=== PATIENT | male | born 1955 | race Caucasian/White ===

== ENCOUNTER 2023-06-27 09:11 | Observation (INO) | payer MEDICARE, SELFPAY ==
[2023-06-27 09:13] VITALS: BP 175/99; PULSE 75; RESP 14; TEMP 36.4; O2SAT 98; BMI 50.1
--- NOTE | 2023-06-27 09:19 | EDS_ITS ---
HPI HPI - GI History of Present Illness Chief Complaint: Abd Pain Informant: patient Abdominal Pain/Flank Pain Onset: Days (5) Context: Sudden Onset Timing: Continuous Quality: Cramping Location: RLQ and LLQ Worsened by: Nothing Relieved by: Nothing Nausea/Vomiting/Emesis GI Symptom: Positive for Nausea; Negative for Vomiting Diarrhea/Melena/Hematochezia GI Symptom: Negative for Diarrhea, Melena or Hematochezia Associated Symptoms Associated Symptoms: Negative for Dysuria, Frequency or Hematuria Narrative Narrative: Patient presents with abdominal pain that has been getting worse over the last 5 days. Patient states it began rather suddenly. Patient states it started in his right lower quadrant but now is in the periumbilical area. Patient states he has been some muscle pain over his lower abdomen. Patient states nothing makes it worse and nothing makes it better. Patient states the pain has been constant. Patient describes it as cramping. Patient admits to some nausea but denies any vomiting. Patient denies any diarrhea, melena, or hematochezia. Patient denies any dysuria or hematuria. Patient states he took some milk of magnesia with no improvement. PFSH PFSH Medical History no medical history no medical history Home Medications NK 06/27/23 [History Last Taken Unknown] Allergy/AdvReac Type Severity Reaction Status Date / Time No Known Allergies Allergy Verified 06/27/23 09:12 Surgical History (Updated 06/27/23 @ 09:[address] Shreyas Armando DO) Hx of knee surgery Social History Smoking Status: Former smoker ROS ROS ED Constitutional Constitutional ED: Reports chills, fever(s) and subjective Eyes Eyes: Denies blurry vision or change in vision ENT ENT ED: Denies rhinorrhea or sore throat Cardiovascular Cardiovascular: Denies chest pain or palpitations Respiratory/Chest Respiratory/Chest: Denies cough or dyspnea Gastrointestinal Gastrointestinal: Reports abdominal pain and nausea; Denies vomiting Genitourinary Genitourinary ED: Denies dysuria or hematuria Musculoskeletal Musculoskeletal: Reports back pain; Denies neck pain Integumentary Denies abscess or rash Neurologic Neurologic: Denies headache(s) or weakness Allergic/Immunologic Allergic/Immunologic ED: Denies mouth swelling or urticaria EXAM Physical Exam Const Vital Signs: 06/27/23 09:13 06/27/23 10:13 06/27/23 13:20 Temperature 97.6 F L 98.8 F Temperature Source Temporal Pulse Rate 75 67 58 L Respiratory Rate 14 18 18 Blood Pressure 175/99 H 154/85 H Blood Pressure Mean 124 108 Pulse Ox 98 98 97 Oxygen Delivery Method Room Air Room Air Positive well nourished, well developed and obese General Appearance ED: well developed and NAD Nutritional Appearance: obese HEENT Reports moist mucous membranes normocephalic Neck supple and no JVD Resp normal respiratory effort and clear to auscultation bilaterally Cardio regular rate and regular rhythm GI non-distended Palpation: soft and tender epigastric, LLQ, RLQ, LUQ, RUQ, periumbilical and suprapubic; Negative for guarding or rebound tenderness present Neuro CN's II-XII intact bilaterally, moves all extremities and no sensory deficits noted Sensorium / Orientation: alert Motor Exam: strength 5/5 throughout MDM MDM MDM Narrative Medical decision making narrative: Differential diagnosis includes cholecystitis, cholelithiasis, pyelonephritis, pancreatitis, colitis, appendicitis, obstruction, perforation, ureteral calculus, urinary tract infection, and gastroenteritis. CBC will be obtained to assess for leukocytosis and anemia. Comprehensive metabolic profile will be obtained to assess for hepatic function, renal function, and electrolyte abnormality. Lipase will be obtained to assess for pancreatitis. Urinalysis will be obtained to assess for urinary tract infection and hematuria. CT scan of the abdomen pelvis will be obtained to assess for appendicitis, cholecystitis, bowel obstruction, perforation, and ureteral calculus. Lab Data Attestation: I reviewed the patient's lab results. Lab results narrative: CBC was reviewed. There is a leukocytosis of 13.2. Comprehensive metabolic profile was reviewed and was essentially within normal limits. Lipase was reviewed and was normal at 49. Urinalysis was reviewed. There is no evidence of urinary tract infection or hematuria. Labs: Laboratory Results - last 24 hr 06/27/23 06/27/23 09:45 10:55 WBC 13.2 H RBC 5.44 Hgb 16.2 Hct 48.8 MCV 89.7 MCH 29.8 MCHC 33.2 RDW Std Deviation 44.9 H RDW Coeff of Morteza 13.7 Plt Count 256 MPV 9.7 Immature Gran % (Auto) 2.200 H Neut % (Auto) 78.5 H Lymph % (Auto) 9.0 L [place] % (Auto) 9.2 Eos % (Auto) 0.6 Baso % (Auto) 0.5 Absolute Neuts (auto) 10.3 H Absolute Lymphs (auto) 1.18 Nucleated RBC % 0 Sodium 140 Potassium 4.5 Chloride 109 H Carbon Dioxide 27.0 Anion Gap 4 L BUN 22 H Creatinine 1.09 Estim Creat Clear Calc 59.80 Est GFR (MDRD) Af Amer 86 Est GFR (MDRD) Non-Af 71 BUN/Creatinine Ratio 20.2 H Glucose 112 H Calcium 8.8 Total Bilirubin 1.10 H AST 30 ALT 72 H Alkaline Phosphatase 67 Total Protein 7.0 Albumin 3.4 Globulin 3.6 Albumin/Globulin Ratio 0.9 Lipase 49 Urine Color Yellow Urine Clarity Sl. Cloudy Urine pH 6.0 Ur Specific [place] 1.020 Urine Protein 30 H Urine Glucose (UA) Normal Urine Ketones Negative Urine Occult Blood 10 H Urine Nitrite Negative Urine Bilirubin Negative Urine Urobilinogen 1 H Ur Leukocyte Esterase 100 H Urine RBC 0 SEEN Urine WBC 0-5 SEEN Ur Squamous Epith Cells 0 SEEN Urine Bacteria 0 SEEN Urine Mucus 0 SEEN Radiography Diagnostic Testing: Clinical Impression(s) from Imaging Studies Abdomen/Pelvis CT 06/27/23 09:33 IMPRESSION: Questionable recent anterior abdominal hernia repair with postoperative changes and possible small postoperative seroma. Clinical correlation recommended. Left renal cysts. Findings suggestive of a sludge or small gallstones within the gallbladder lumen. Electronically Signed: Kvng Bella MD at 12:38 EDT , CT scan of the abdomen pelvis was obtained. There is a small fluid collection in the periumbilical area. There is no free air or free fluid. This was interpreted by the radiologist and was also independently reviewed by myself. Treatment and Re-Evaluation :: Patient was given IV fluids, morphine, and Zofran. Patient is feeling better on reevaluation. Patient was given a dose of Zosyn. Case was discussed with Dr. Yates. She will admit the patient for IV antibiotics. Patient understands and is agreeable with the plan. All questions were answered. Discharge Plan Triage Chief Complaint: Abd Pain ED Provider: Shreyas Armando Dx/Rx/DC Orders Clinical Impression: Leukocytosis, Abdominal abscess Prescriptions: No Action NK Primary Care Provider: Yuriy Morgan Referrals: Yuriy Morgan MD [Primary Care Provider] - Disposition Disposition: Acute Care Hospital [facility]
--- NOTE | 2023-06-27 09:33 | CT_ITS ---
STUDY: CT ABDOMEN AND PELVIS WITH CONTRAST REASON FOR EXAM: Male, 67 years old. Abdominal pain -- IV PO Contrast RADIATION DOSAGE (If Supplied By Facility): CTDIvol = ( 18.39 ) mGy, DLP = ( 1501.17 ) mGycm TECHNIQUE: Transaxial images were obtained from the dome of the diaphragm to the symphysis pubis with oral contrast. Oral and amp; IV Gastrografin and amp; 100mL Isovue-300 was administered. Sagittal and coronal images were reconstructed. Individualized dose optimization techniques were used for this CT. COMPARISON: None. FINDINGS: The visualized lung bases are unremarkable. The visualized portions of the heart are within normal limits. Normal liver. Suspect sludge or small gallstones in the dependent portion the gallbladder lumen. Normal spleen. Normal pancreas. Normal bilateral adrenal glands. Normal right kidney. There is a 4 cm x 3.8 cm cyst in the upper pole of the left kidney. Left renal cysts also seen in the midportion the kidney and in the lower pole. The largest cyst measures 4 cm x 4.8 cm. Normal visualized stomach. Normal small intestine. There are multiple colonic diverticula consistent with diverticulosis. The appendix is visualized and appears normal. There is scattered atherosclerotic calcification of the abdominal aorta, without a demonstrated aneurysm. Normal inferior vena cava. Normal retroperitoneum. Normal urinary bladder. Prostatic calcification. Findings suggestive of recent anterior abdominal wall hernia repair with a 4.5 cm x 2.5 cm fluid collection suggestive of possible postoperative seroma. There is also evidence of a small amount of air collection within the fluid. There are degenerative changes of the visualized lumbar spine. CT/Abdomen/Pelvis WITH Contrast IMPRESSION: Questionable recent anterior abdominal hernia repair with postoperative changes and possible small postoperative seroma. Clinical correlation recommended. Left renal cysts. Findings suggestive of a sludge or small gallstones within the gallbladder lumen. Electronically Signed: Kvng Bella MD at 12:38 EDT ,
[2023-06-27] MEDS: 0.9% Normal Saline (1000mL) 1,000 ML 1000 ML IV (09:41)
[2023-06-27] MEDS: Ondansetron 4 MG/2 ML Vial IV (09:42)
[2023-06-27 09:52] LABS: Absolute Lymphocyte Count 1.18 X10^3/uL (0.83-4.51); Absolute Neutrophil Count 10.3 X10^3/uL (2.0-7.7); Basophil# 0.06 X10^3/uL; Basophil% 0.5 % (0-1); Eosinophil# 0.08 X10^3/uL; Eosinophils% 0.6 % (0-5); Hematocrit 48.8 % (40-54); Hemoglobin 16.2 g/dL (13.0-16.5); Lymphocyte # 1.18 X10^3/ul (0.83-4.51); Mean Corp Hgb Conc 33.2 g/dL (32-36); Mean Corpuscular Hgb 29.8 pg (27.0-32.0); Mean Corpuscular Volume 89.7 fL (80-94); Mean Platelet Vol. 9.7 fl (6.2-12.0); Monocyte# 1.21 X10^3/uL; Monocyte% 9.2 % (0-10); NRBC Flagged by Analyzer 0 % (0-5); Neutrophil # 10.33 X10^3/uL (2.7-7.7); Neutrophil % 78.5 % (47-70); Platelet Count 256 K/mm3 (150-450); RBC Distribution Width CV 13.7 % (11.6-14.6); RBC Distribution Width SD 44.9 fl (35.1-43.9); Red Blood Count 5.44 M/mm3 (4.6-6.2); White Blood Count 13.2 K/mm3 (4.4-11.0)
[2023-06-27 10:10] LABS: ALB/GLOB Ratio 0.9 RATIO (0.9-2.4); AST(SGOT) 30 U/L (15-37); Alanine Aminotransfer ALT/SGPT 72 U/L (16-61); Albumin, Serum 3.4 g/dL (3.2-5.0); Alkaline Phosphatase 67 U/L (45-117); Anion Gap 4 (5-15); BUN 22 mg/dL (7-18); BUN/Creat Ratio 20.2 RATIO (10-20); Calcium,Total 8.8 mg/dL (8.5-10.1); Chloride 109 mmol/L (98-107); Creatinine, Serum 1.09 mg/dL (0.70-1.30); EST Glomerular Filtration Rate 71 mL/min (>60); Est Glom Filt Rate - Afr Amer 86 mL/min (>60); Globulin 3.6 g/dL (2.2-4.2); Glucose 112 mg/dL (74-106); Lipase 49 U/L (13-75); Potassium 4.5 mmol/L (3.5-5.1); Sodium Level 140 mmol/L (136-145)
[2023-06-27 10:13] VITALS: PULSE 67; RESP 18; O2SAT 98
[2023-06-27 11:01] LABS: Bacteria 0 SEEN /hpf (None Seen); Mucous, Urine 0 SEEN /hpf (<or=2+); Red Blood Cells-Urine 0 SEEN /hpf (0-5)
[2023-06-27 11:04] LABS: Color, Urine Yellow (Yellow); Glucose, Dipstick Normal (Normal); Ketone-Dipstick Negative (Negative); Leukocyte Esterase-Dipstick 100 /ul (Negative); Nitrite-Dipstick Negative (Negative); Occult Blood-Urine 10 /ul (Negative); Protein-Dipstick 30 mg/dl (Negative); Urine Bilirubin Dipstick Negative (Negative); Urine Clarity Sl. Cloudy (Clear); Urine Urobilinogen 1 mg/dl (Normal)
[2023-06-27 11:09] LABS: White Blood Cells 0-5 SEEN /hpf (0-5)
[2023-06-27 11:10] LABS: Squamous Epithelial Cells - UA 0 SEEN /hpf (0-5)
[2023-06-27] MEDS: Piperacil/Tazobactam 4.5 GM in 0.9% Normal Saline (100mL MB+) 100 ML IV (12:19)
--- NOTE | 2023-06-27 13:01 | HP.PCM_ITS ---
HPI - General General Date of Admission: 06/27/23 Date of Service: 06/27/23 Chief Complaint: abdominal pain HPI Narrative ISMAEL SANCHEZ, is a 67 M with a pMH as outlined who presents via the ED on 06/27/2023 with a complaint of abdominal pain with had been going on for about 5 days. It started rather suddenly and was periumbilical in nature. It had no aggravating or relieving factor. He denied any fever, chills, palpitations or vomiting. He did admit to nausea. Review of systems was otherwise negative. Vitals in the ED were AR of 67, RR of 18, oxygen sats of 98% on room air. BP was 175/99. CBC showed wbc of 13.2, hb of 16.2 and platelets of 256. Chemistry showed sodium of 140, cr of 1.09 and potassium of 4.5. Urinalysis showed no evidence of UTI. CT of the abdomen and pelvis showed questionable recent anterior abdominal hernia repair with postoperative changes and possible small postoperative seroma with findings suggestive of sludge or small gallstones in the gallbladder and left renal cyst. He has been admitted to be managed for abdominal pain PFSH Medical History no medical history Home Medications oxycodone 15 mg tablet 15 mg PO Q4H 01/10/14 [History Last Taken Unknown] Allergy/AdvReac Type Severity Reaction Status Date / Time No Known Allergies Allergy Verified 06/27/23 09:12 Surgical History (Updated 06/27/23 @ 09:[address] Shreyas Armando DO) Hx of knee surgery Social History Smoking Status: Former smoker Vital Signs Vital Signs Vital Signs: 06/27/23 09:13 06/27/23 10:13 Temperature 97.6 F L Temperature Source Temporal Pulse Rate 75 67 Respiratory Rate 14 18 Blood Pressure 175/99 H Blood Pressure Mean 124 Pulse Ox 98 98 Oxygen Delivery Method Room Air Room Air Weight Weight: 320 lb 1.6 oz Body Mass Index (BMI) 50.1 Results Lab / Micro Data 06/27/23 09:45 06/27/23 09:45 Labs: Laboratory Results - last 24 hr 06/27/23 09:45: WBC 13.2 H, RBC 5.44, Hgb 16.2, Hct 48.8, MCV 89.7, MCH 29.8, MCHC 33.2, RDW Std Deviation 44.9 H, RDW Coeff of Morteza 13.7, Plt Count 256, MPV 9.7, Immature Gran % (Auto) 2.200 H, Neut % (Auto) 78.5 H, Lymph % (Auto) 9.0 L, [place] % (Auto) 9.2, Eos % (Auto) 0.6, Baso % (Auto) 0.5, Absolute Neuts (auto) 10.3 H, Absolute Lymphs (auto) 1.18, Nucleated RBC % 0, Sodium 140, Potassium 4.5, Chloride 109 H, Carbon Dioxide 27.0, Anion Gap 4 L, BUN 22 H, Creatinine 1.09, Estim Creat Clear Calc 59.80, Est GFR (MDRD) Af Amer 86, Est GFR (MDRD) Non-Af 71, BUN/Creatinine Ratio 20.2 H, Glucose 112 H, Calcium 8.8, Total Bili sloan 1.10 H, AST 30, ALT 72 H, Alkaline Phosphatase 67, Total Protein 7.0, Albumin 3.4, Globulin 3.6, Albumin/Globulin Ratio 0.9, Lipase 49 06/27/23 10:55: Urine Color Yellow, Urine Clarity Sl. Cloudy, Urine pH 6.0, Ur Specific [place] 1.020, Urine Protein 30 H, Urine Glucose (UA) Normal, Urine Ketones Negative, Urine Occult Blood 10 H, Urine Nitrite Negative, Urine Bilirubin Negative, Urine Urobilinogen 1 H, Ur Leukocyte Esterase 100 H, Urine RBC 0 SEEN, Urine WBC 0-5 SEEN, Ur Squamous Epith Cells 0 SEEN, Urine Bacteria 0 SEEN, Urine Mucus 0 SEEN Radiology Impression Abdomen/Pelvis CT 06/27/23 09:33 IMPRESSION: Questionable recent anterior abdominal hernia repair with postoperative changes and possible small postoperative seroma. Clinical correlation recommended. Left renal cysts. Findings suggestive of a sludge or small gallstones within the gallbladder lumen. Electronically Signed: Kvng Bella MD at 12:38 EDT ,
[2023-06-27 13:20] VITALS: BP 154/85; PULSE 58; RESP 18; TEMP 37.1; O2SAT 97
--- NOTE | 2023-06-27 14:10 | HP.PCM_ITS ---
HPI - General General Date of Admission: 06/27/23 Date of Service: 06/27/23 Chief Complaint: Abdominal pain HPI Narrative ISMAEL SANCHEZ, is a 67 M who presents with a 5 day history of mid abdominal pain. Patient stated on Monday evening he had a sudden onset of pain at the umbilicus. He described the pain as severe cramping and twisting of the bowel. Patient notes he felt bloated and had a lot of pressure on his abdomen. Patient's gave the patient a dose of milk of magnesium which allowed him to have a bowel movement and eased the pain. Patient notes for 2 days after the pain had slowly improved. Patient notes his appetite was decreased for 2 days. Patient denies fever, nausea, vomiting. Patient notes his abdomen continues to be sore, however the pain has improved. Patient notes last night for dinner he had chicken breast, broccoli and potatoes. Patient notes he had a similar episode of abdominal pain last year. He was unsure of what the pain could be, however did not seek treatment at that time. Patient states the pain was more intense the last episode. Patient stated if similar abdominal pain occurred, he would seek t reatment. Patient states he had ulcerative colitis at the age of 17. He notes his sister has a history of diverticulitis. He is unsure of his other siblings history. Patient states he is unsure if the sister with the diverticulitis has a history of ulcerative colitis. Patient did note that his sisters son, patient's nephew, of colon cancer at the age of 30. Patient states he has never had a colonoscopy. He notes normal bowel habits. He does not and has not followed with a pathology laboratory aide. Patient states he performs yearly occult blood tests which have been negative. CT scan of the abdomen/pelvis demonstrated a 4.5 x 2.5 cm fluid collection possible seroma. Left renal cyst. Sludge or small gallstones within the gallbladder. Patient's WBC is 13.2 with a left shift. [facility] Medical History no medical history Home Medications NK 06/27/23 [History Last Taken Unknown] Allergy/AdvReac Type Severity Reaction Status Date / Time No Known Allergies Allergy Verified 06/27/23 09:12 Surgical History (Updated 06/27/23 @ 09:[address] Shreyas Armando, DO) Hx of knee surgery Social History Smoking Status: Former smoker ROS Constitutional Constitutional: Reports systems reviewed and no addt'l complaints, except as documented Eyes Eyes: Reports systems reviewed and no addt'l complaints, except as documented ENT HEENT: Reports systems reviewed and no addt'l complaints, except as documented Cardiovascular Cardiovascular: Reports systems reviewed and no addt'l complaints, except as documented Respiratory/Chest Respiratory/Chest: Reports systems reviewed and no addt'l complaints, except as documented Gastrointestinal Gastrointestinal: Reports systems reviewed and no addt'l complaints, except as documented Genitourinary Genitourinary: Reports systems reviewed and no addt'l complaints, except as documented Musculoskeletal Musculoskeletal: Reports systems reviewed and no addt'l complaints, except as documented Integumentary Integumentary: Reports systems reviewed and no addt'l complaints, except as documented Neurologic Neurologic: Reports systems reviewed and no addt'l complaints, except as documented Psychiatric Psychiatric: Reports systems reviewed and no addt'l complaints, except as doc umented Endocrine Endocrinology: Reports systems reviewed and no addt'l complaints, except as documented Hematologic/Lymphatic Hematologic/Lymphatic: Reports systems reviewed and no addt'l complaints, except as documented Allergic/Immunologic Allergic/Immunologic: Reports systems reviewed and no addt'l complaints, except as documented Vital Signs Vital Signs Vital Signs: 06/27/23 09:13 06/27/23 10:13 06/27/23 13:20 Temperature 97.6 F L 98.8 F Temperature Source Temporal Pulse Rate 75 67 58 L Respiratory Rate 14 18 18 Blood Pressure 175/99 H 154/85 H Blood Pressure Mean 124 108 Pulse Ox 98 98 97 Oxygen Delivery Method Room Air Room Air Weight Weight: 320 lb 1.6 oz Body Mass Index (BMI) 50.1 Physical Exam Const alert, oriented x3 and no apparent distress Nutritional Appearance: morbidly obese HEENT normocephalic and head/scalp atraumatic Eyes PERRL and EOMs intact bilaterally Neck full ROM General: normal visual inspection Lymph Lymphatic: no lymphadenopathy noted Chest inspection of chest normal Resp normal respiratory effort and clear to auscultation bilaterally Cardio regular rate and regular rhythm GI GI Narrative: Abdomen- obtunded, obese, hypoactive bowel sounds. Tenderness in the mid abdomen inferior to the umbilicus and right lower abdomen. no CVA tenderness Back/Spine no CVA tenderness Extremity normal to inspection Skin no rashes or lesions noted Neuro no focal motor deficits and no sensory deficits noted Psych mental status grossly normal Appearance: grossly normal Results Lab / Micro Data 06/27/23 09:45 06/27/23 09:45 Labs: Laboratory Results - last 24 hr 06/27/23 09:45: WBC 13.2 H, RBC 5.44, Hgb 16.2, Hct 48.8, MCV 89.7, MCH 29.8, MCHC 33.2, RDW Std Deviation 44.9 H, RDW Coeff of Morteza 13.7, Plt Count 256, MPV 9.7, Immature Gran % (Auto) 2.200 H, Neut % (Auto) 78.5 H, Lymph % (Auto) 9.0 L, [place] % (Auto) 9.2, Eos % (Auto) 0.6, Baso % (Auto) 0.5, Absolute Neuts (auto) 10.3 H, Absolute Lymphs (auto) 1.18, Nucleated RBC % 0, Sodium 140, Potassium 4.5, Chloride 109 H, Carbon Dioxide 27.0, Anion Gap 4 L, BUN 22 H, Creatinine 1.09, Estim Creat Clear Calc 59.80, Est GFR (MDRD) Af Amer 86, Est GFR (MDRD) Non-Af 71, BUN/Creatinine Ratio 20.2 H, Glucose 112 H, Calcium 8.8, Total Bilirubin 1.10 H, AST 30, ALT 72 H, Alkaline Phosphatase 67, Total Protein 7.0, Albumin 3.4, Globulin 3.6, Albumin/Globulin Ratio 0.9, Lipase 49 06/27/23 10:55: Urine Color Yellow, Urine Clarity Sl. Cloudy, Urine pH 6.0, Ur Specific [place] 1.020, Urine Protein 30 H, Urine Glucose (UA) Normal, Urine Ketones Negative, Urine Occult Blood 10 H, Urine Nitrite Negative, Urine Bilirubin Negative, Urine Urobilinogen 1 H, Ur Leukocyte Esterase 100 H, Urine RBC 0 SEEN, Urine WBC 0-5 SEEN, Ur Squamous Epith Cells 0 SEEN, Urine Bacteria 0 SEEN, Urine Mucus 0 SEEN Radiology Impression Abdomen/Pelvis CT 06/27/23 09:33 IMPRESSION: Questionable recent anterior abdominal hernia repair with postoperative changes and possible small postoperative seroma. Clinical correlation recommended. Left renal cysts. Findings suggestive of a sludge or small gallstones within the gallbladder lumen. Electronically Signed: Kvng Bella MD at 12:38 EDT , Assessment & Plan Assessment/Plan (1) Acute diverticulitis: PLAN: I have discussed patient with Dr. Yates. Patient is presenting with acute onset of abdominal pain with CT scan of ab/pel confirming abscess inferior to the umbilicus. Abscess is most likely from a ruptured diverticula. Patient continues to have abdominal pain and an elevated WBC. Plan is to admit patient for observation, bowel rest, IV fluids and antibiotics. Patient may have clear liquids. Patient has had the opportunity to ask and have questions answered. Patient verbally understands and agrees with the plan. Dr. Yates will independently evaluate this patient. (2) Abdominal abscess: Charges/Coding Visit Charges OBSV E&M: 23511 Observ/hosp same date L1
--- NOTE | 2023-06-27 14:13 | NURSING ---
MED SURG ROBOTHAM ABD ABSCESS
[2023-06-27 15:11] VITALS: BMI 50.1
[2023-06-27 15:36] VITALS: BP 145/82; PULSE 74; RESP 20; TEMP 36.5; O2SAT 99
[2023-06-27] MEDS: 0.9% Saline Lock 10 ML Syringe IV (15:41)
[2023-06-27] MEDS: 0.9% Normal Saline (1000mL) 1,000 ML 75 ML IV (15:42)
[2023-06-27 20:55] VITALS: BP 153/79; PULSE 61; RESP 18; TEMP 37; O2SAT 97
[2023-06-27] MEDS: Acetaminophen 325 MG Tablet 650 MG PO (21:03)
[2023-06-27] MEDS: Piperacil/Tazobactam 3.375 GM in 0.9% Normal Saline (50mL MB+) 50 ML IV (21:04)
--- NOTE | 2023-06-27 21:10 | NURSING ---
pt reports IV beeping, this RN enters room and pt straightens his arm, which shut the beeping off. pt aggravated stating, this damn IV is in my arm wrong and i cant bend it without that damn thing going off. This RN offered to restart IV elsewhere so that it wouldnt be in the crease of his arm, pt states why would i let you do that when you guys already fucked it up the first time this RN apologized and stated that ER puts IVs in the ac because of easy access. pt was aggravated stating he dont know why the hell i am on clear liquids, why I need IV fluids and antibiotics. education provided and stated that IV fluids are to run all night d/t not eating. pt stated fine then i want a benadryl to fucking sleep to sedate me. this RN looked at MAR and saw pt had melatonin ordered, which pt stated he takes at home prior. pt refused melatonin offer and demanded benadryl.
--- NOTE | 2023-06-27 22:00 | NURSING ---
pt rang out saying iv was going off, this fruit canner went in and told pt to straighten arm that stopped the iv from going off. pt proceeds to be very rude stating this is the worst place hes ever been to, and never been treated so poorly says room is never comfy its either to hot or cold but pt thermostat was never moved up and down pt wanted air turned up at beginning of shift. this fruit canner offered to adjust the room temp pt said no just leave it alone and get the fuck out of my room
--- NOTE | 2023-06-28 04:30 | NURSING ---
This RN goes into pts room to get second set of vitals and to do an assessment. pt reports i have been up all fucking night. you told me you would unhook these IVF this RN educated and said that the fluids were to run all night, and restated what I had earlier this shift stating, he had the right to refuse them, but pt never called back out to say for sure. pt stated that is bullshit this RN apologized, pt refused vitals and assessment and antibiotics for this RN and stated to just get out I am going to report you. this hospital sucks. all this place does is neglect its patients, it is a miracle anyone comes here. education provided in regards to atb and vitals, pt stated 'i dont care Argelia, charge hand aware.
[2023-06-28 05:00] VITALS: BP 151/100; PULSE 61; RESP 18; TEMP 36.6; O2SAT 94
--- NOTE | 2023-06-28 05:00 | NURSING ---
When i walked into room. Pt iv was off. Pt was upset and emotional. Support was given. Pt calmer at this time. Pt was informed to let the md dictate his care. Pt demanding that zosyn should go in 30 min not 4hrs. Instructed pt that is only done in er. Pt also upset about iv in rac. Informed that charles needs that iv in his elbow area because big vein. Pt said i am a big sonya and i cant stay on clear liq. Inform pt again to let md dictate his care. That if he starts demanding things He may end up here longerThe rN Marcella said she did not turn iv off Pt must have. Iv turn back on. Pt said i am drinking enough I do not need that running
[2023-06-28] MEDS: Piperacil/Tazobactam 3.375 GM in 0.9% Normal Saline (50mL MB+) 50 ML IV ×3 (05:30→21:11)
[2023-06-28 06:49] LABS: Absolute Lymphocyte Count 1.05 X10^3/uL (0.83-4.51); Absolute Neutrophil Count 8.2 X10^3/uL (2.0-7.7); Basophil# 0.07 X10^3/uL; Basophil% 0.7 % (0-1); Eosinophil# 0.11 X10^3/uL; Hematocrit 45.2 % (40-54); Hemoglobin 14.6 g/dL (13.0-16.5); Lymphocyte # 1.05 X10^3/ul (0.83-4.51); Lymphocyte % 9.9 % (19-41); Mean Corp Hgb Conc 32.3 g/dL (32-36); Mean Corpuscular Volume 89.7 fL (80-94); Mean Platelet Vol. 9.8 fl (6.2-12.0); Monocyte# 1.01 X10^3/uL; Monocyte% 9.5 % (0-10); NRBC Flagged by Analyzer 0 % (0-5); Neutrophil # 8.18 X10^3/uL (2.7-7.7); Neutrophil % 76.8 % (47-70); Platelet Count 240 K/mm3 (150-450); RBC Distribution Width CV 13.7 % (11.6-14.6); RBC Distribution Width SD 45.2 fl (35.1-43.9); Red Blood Count 5.04 M/mm3 (4.6-6.2); White Blood Count 10.6 K/mm3 (4.4-11.0)
[2023-06-28 07:49] LABS: Anion Gap 4 (5-15); BUN 20 mg/dL (7-18); Calcium,Total 8.6 mg/dL (8.5-10.1); Chloride 112 mmol/L (98-107); Creatinine, Serum 0.91 mg/dL (0.70-1.30); EST Glomerular Filtration Rate 88 mL/min (>60); Est Glom Filt Rate - Afr Amer 106 mL/min (>60); Estimated Creatinine Clearance 71.63 ml/min; Glucose 97 mg/dL (74-106); Potassium 4.5 mmol/L (3.5-5.1); Sodium Level 137 mmol/L (136-145)
[2023-06-28 08:15] VITALS: BP 133/85; PULSE 60; RESP 18; TEMP 36.7; O2SAT 94
--- NOTE | 2023-06-28 09:23 | PCM.PN.SRG ---
Documented by User: Debbie MI PA-C 06/28/23 11:34 Subjective Subjective Patient evaluated resting comfortably in bed. He denies nausea, vomiting, fever or abdominal pain overnight. Patient notes he was not able to sleep very well overnight. Patient notes he is tolerating clear liquids. He denies any bowel movements. Objective Data Objective Data Vital Signs: Vital Signs Temp Pulse Resp BP Pulse Ox O2 Del Method 98.1 F 60 18 133/85 H 94 Room Air 06/28/23 08:15 06/28/23 08:15 06/28/23 08:15 06/28/23 08:15 06/28/23 08:15 06/28/23 08:15 Oxygen Delivery Method Room Air Weight: 320 lb 1.6 oz Body Mass Index (BMI) 50.1 Intake & Output: Intake and Output for Last 24 Hours 06/26/23 06/27/23 06/28/23 23:59 23:59 23:59 Intake Total 1502.5 / 1502.5 50 / 50 Balance 1502.5 / 1502.5 50 / 50 Lab / Micro Data 06/28/23 06:35 06/28/23 06:35 Labs: Laboratory Results - last 24 hr 06/27/23 09:45: WBC 13.2 H, RBC 5.44, Hgb 16.2, Hct 48.8, MCV 89.7, MCH 29.8, MCHC 33.2, RDW Std Deviation 44.9 H, RDW Coeff of Morteza 13.7, Plt Count 256, MPV 9.7, Immature Gran % (Auto) 2.200 H, Neut % (Auto) 78.5 H, Lymph % (Auto) 9.0 L, Bailey % (Auto) 9.2, Eos % (Auto) 0.6, Baso % (Auto) 0.5, Absolute Neuts (auto) 10.3 H, Absolute Lymphs (auto) 1.18, Nucleated RBC % 0, Sodium 140, Potassium 4.5, Chloride 109 H, Carbon Dioxide 27.0, Anion Gap 4 L, BUN 22 H, Creatinine 1.09, Estim Creat Clear Calc 59.80, Est GFR (MDRD) Af Amer 86, Est GFR (MDRD) Non-Af 71, BUN/Creatinine Ratio 20.2 H, Glucose 112 H, Calcium 8.8, Total Bilirubin 1.10 H, AST 30, ALT 72 H, Alkaline Phosphatase 67, Total Protein 7.0, Albumin 3.4, Globulin 3.6, Albumin/Globulin Ratio 0.9, Lipase 49 06/27/23 10:55: Urine Color Yellow, Urine Clarity Sl. Cloudy, Urine pH 6.0, Ur Specific [place] 1.020, Urine Protein 30 H, Urine Glucose (UA) Normal, Urine Ketones Negative, Urine Occult Blood 10 H, Urine Nitrite Negative, Urine Bilirubin Negative, Urine Urobilinogen 1 H, Ur Leukocyte Esterase 100 H, Urine RBC 0 SEEN, Urine WBC 0-5 SEEN, Ur Squamous Epith Cells 0 SEEN, Urine Bacteria 0 SEEN, Urine Mucus 0 SEEN 06/28/23 06:35: WBC 10.6, RBC 5.04, Hgb 14.6, Hct 45.2, MCV 89.7, MCH 29.0, MCHC 32.3, RDW Std Deviation 45.2 H, RDW Coeff of Morteza 13.7, Plt Count 240, MPV 9.8, Immature Gran % (Auto) 2.100 H, Neut % (Auto) 76.8 H, Lymph % (Auto) 9.9 L, Bailey % (Auto) 9.5, Eos % (Auto) 1.0, Baso % (Auto) 0.7, Absolute Neuts (auto) 8.2 H, Absolute Lymphs (auto) 1.05, Nucleated RBC % 0, Sodium 137, Potassium 4.5, Chloride 112 H, Carbon Dioxide 21.0, Anion Gap 4 L, BUN 20 H, Creatinine 0.91, Estim Creat Clear Calc 71.63, Est GFR (MDRD) Af Amer 106, Est GFR (MDRD) Non-Af 88, BUN/Creatinine Ratio 22.0 H, Glucose 97, Calcium 8.6 Radiography Diagnostic Testing: Radiology Impression Abdomen/Pelvis CT 06/27/23 09:33 IMPRESSION: Questionable recent anterior abdominal hernia repair with postoperative changes and possible small postoperative seroma. Clinical correlation recommended. Left renal cysts. Findings suggestive of a sludge or small gallstones within the gallbladder lumen. Electronically Signed: Kvng Bella MD at 12:38 EDT , Physical Exam GI normal to inspection, nondistended, normoactive bowel sounds Inspection: central obesity Assessment & Plan Assessment/Plan (1) Acute diverticulitis: PLAN: I am following this patient in conjunction with Dr. Yates. She will independently evaluated this patient. Recommend continued IV antibiotics for an additional day due to abdominal abscess associated with acute diverticulitis episode. Increase patient's diet to full liquids. If patient tolerates without any abdominal pain/discomfort, may increase to regular, low fiber diet. Lab work reviewed. WBC has decreased. Probable discharge tomorrow, if tolerate regular diet without associated abdominal pain. Patient will need to continue oral antibiotics at discharge for additional days and follow-up with Dr. Yates as an outpatient. Charges/Coding Visit Charges Inpatient E&M: 19514 Subs Hosp L1 Documented by User: Dr. Norma Yates MD 06/28/23 12:14 Objective Data Lab / Micro Data 06/28/23 06:35 06/28/23 06:35 Assessment & Plan Assessment/Plan (1) Acute diverticulitis: PLAN: Plan Patient seen and examined. Agree with Debbie Jose's note. If tolerates full liquids we will give him low fiber diet today and also Hep-Lock his IV fluids for good p.o. Patient no further question this time.
[2023-06-28] MEDS: 0.9% Normal Saline (1000mL) 1,000 ML 75 ML IV (10:55)
[2023-06-28 14:07] VITALS: BP 141/86; PULSE 64; RESP 18; TEMP 36.4; O2SAT 94
[2023-06-28] MEDS: 0.9% Saline Lock 10 ML Syringe IV ×2 (14:15→21:12)
[2023-06-28] MEDS: Acetaminophen 325 MG Tablet 650 MG PO (14:23)
--- NOTE | 2023-06-28 15:58 | CASEMGMT ---
Met with patient to complete WILSON form. WILSON form explained to patient who voiced understanding and signed form. Original form placed in pt?s chart and copy provided to patient. Dayanara Sewell, Discharge Planning Asst
[2023-06-28 20:10] VITALS: BP 138/84; PULSE 68; RESP 16; TEMP 37.2; O2SAT 95
[2023-06-28] MEDS: DiphenhydrAMINE 25 MG Capsule PO (21:14)
[2023-06-29 02:10] VITALS: BP 142/86; PULSE 62; RESP 16; TEMP 37.2; O2SAT 99
[2023-06-29] MEDS: 0.9% Saline Lock 10 ML Syringe IV (05:36)
[2023-06-29] MEDS: Piperacil/Tazobactam 3.375 GM in 0.9% Normal Saline (50mL MB+) 50 ML IV (05:36)
[2023-06-29 05:46] VITALS: BMI 50.3
[2023-06-29 07:37] LABS: Absolute Lymphocyte Count 1.25 X10^3/uL (0.83-4.51); Absolute Neutrophil Count 7.2 X10^3/uL (2.0-7.7); Basophil# 0.05 X10^3/uL; Basophil% 0.5 % (0-1); Hematocrit 46.1 % (40-54); Hemoglobin 14.9 g/dL (13.0-16.5); Lymphocyte # 1.25 X10^3/ul (0.83-4.51); Mean Corp Hgb Conc 32.3 g/dL (32-36); Mean Corpuscular Hgb 29.2 pg (27.0-32.0); Mean Corpuscular Volume 90.2 fL (80-94); Mean Platelet Vol. 9.9 fl (6.2-12.0); Monocyte# 0.89 X10^3/uL; Monocyte% 9.2 % (0-10); NRBC Flagged by Analyzer 0 % (0-5); Neutrophil # 7.16 X10^3/uL (2.7-7.7); Neutrophil % 74.3 % (47-70); Platelet Count 236 K/mm3 (150-450); RBC Distribution Width CV 13.6 % (11.6-14.6); RBC Distribution Width SD 45.1 fl (35.1-43.9); Red Blood Count 5.11 M/mm3 (4.6-6.2); White Blood Count 9.6 K/mm3 (4.4-11.0)
[2023-06-29 08:19] LABS: Anion Gap 7 (5-15); BUN 15 mg/dL (7-18); BUN/Creat Ratio 15.3 RATIO (10-20); Calcium,Total 8.4 mg/dL (8.5-10.1); Chloride 111 mmol/L (98-107); Creatinine, Serum 0.98 mg/dL (0.70-1.30); EST Glomerular Filtration Rate 81 mL/min (>60); Est Glom Filt Rate - Afr Amer 97 mL/min (>60); Estimated Creatinine Clearance 66.51 ml/min; Glucose 90 mg/dL (74-106); Potassium 4.3 mmol/L (3.5-5.1); Sodium Level 139 mmol/L (136-145)
[2023-06-29 09:43] VITALS: BP 151/71; PULSE 62; RESP 14; TEMP 36.3; O2SAT 97
--- NOTE | 2023-06-29 10:39 | PCM.PN.SRG ---
Subjective Subjective Patient evaluated resting comfortably in the chair. Patient denies abdominal pain, nausea, vomiting, fever. Patient notes intermittent gas feeling, however no true pain. Patient notes he has had multiple loose bowel movements. He notes these are starting to firm up. Objective Data Objective Data Vital Signs: Vital Signs Temp Pulse Resp BP Pulse Ox O2 Del Method 97.3 F L 62 14 151/71 H 97 Room Air 06/29/23 09:43 06/29/23 09:43 06/29/23 09:43 06/29/23 09:43 06/29/23 09:43 06/29/23 09:43 Oxygen Delivery Method Room Air Weight: 321 lb 8 oz Body Mass Index (BMI) 50.3 Intake & Output: Intake and Output for Last 24 Hours 06/27/23 06/28/23 06/29/23 23:59 23:59 23:59 Intake Total 1502.5 / 1502.5 1691.25 / 1691.25 94.58 / 94.58 Balance 1502.5 / 1502.5 1691.25 / 1691.25 94.58 / 94.58 Lab / Micro Data 06/29/23 06:30 06/29/23 06:30 Labs: Laboratory Results - last 24 hr 06/29/23 06:30: WBC 9.6, RBC 5.11, Hgb 14.9, Hct 46.1, MCV 90.2, MCH 29.2, MCHC 32.3, RDW Std Deviation 45.1 H, RDW Coeff of Morteza 13.6, Plt Count 236, MPV 9.9, Immature Gran % (Auto) 2.000 H, Neut % (Auto) 74.3 H, Lymph % (Auto) 13.0 L, [place] % (Auto) 9.2, Eos % (Auto) 1.0, Baso % (Auto) 0.5, Absolute Neuts (auto) 7.2, Absolute Lymphs (auto) 1.25, Nucleated RBC % 0, Sodium 139, Potassium 4.3, Chloride 111 H, Carbon Dioxide 21.0, Anion Gap 7, BUN 15, Creatinine 0.98, Estim Creat Clear Calc 66.51, Est GFR (MDRD) Af Amer 97, Est GFR (MDRD) Non-Af 81, BUN/Creatinine Ratio 15.3, Glucose 90, Calcium 8.4 L Physical Exam GI GI Narrative: Abdomen- soft, obese, nontender, positive bowel sounds Assessment & Plan Assessment/Plan (1) Acute diverticulitis: PLAN: Patient has been tolerating diet and is pain free He has met criteria for discharge to home today Plan to d/c home on oral Augmentin x 2 weeks Follow-up with Dr. Yates in 10-14 days (2) Abdominal abscess: Charges/Coding Visit Charges Inpatient E&M: 95987 Subs Hosp L1
--- NOTE | 2023-06-29 11:14 | PCM.DC.SUM ---
Providers Date of Admission: 06/27/23 Primary Care Physician: Dr. Yuriy Morgan MD Reason For Visit: ACUTE DIVERITCULITIS WITH ABCESS Diagnosis Discharge Diagnosis (1) Acute diverticulitis: Status: Acute Code(s): K57.92 - Diverticulitis of intestine, part unspecified, without perforation or abscess without bleeding Plan: Patient has been tolerating diet and is pain free He has met criteria for discharge to home today Plan to d/c home on oral Augmentin x 2 weeks Follow-up with Dr. Yates in 10-14 days (2) Abdominal abscess: Status: Acute Medications at Discharge Home Medications amoxicillin 875 mg-potassium clavulanate 125 mg tablet 1 tab PO BID 14 days #28 tabs 06/29/23 Hospital Course Summary of Care Provided Minutes Spent on Discharge: 35 Hospital Course: Patient is a 67 y/o M who presented with mid abdominal pain. Patient was found to have acute diverticulitis with abscess on CT scan. Patient was admitted and treated conservatively with IV antibiotics and bowel rest. Upon discharge, patient was tolerating transitional diet. He denies abdominal pain, fever, chills, nausea, vomiting. Patient met criteria for discharge. Patient was discharged to home on Augmentin x 2 weeks and follow-up with Dr. Yates as an outpatient in 10-14 days. Patient will have a repeat CT scan of the ab/pelvis as an outpatient. Weight / BMI Weight Weight: 321 lb 8 oz Body Mass Index (BMI) 50.3 ABG / Lab / Microbiology Data 06/29/23 06:30 06/29/23 06:30 Laboratory: Laboratory Results - last 24 hr 06/29/23 06:30: WBC 9.6, RBC 5.11, Hgb 14.9, Hct 46.1, MCV 90.2, MCH 29.2, MCHC 32.3, RDW Std Deviation 45.1 H, RDW Coeff of Morteza 13.6, Plt Count 236, MPV 9.9, Immature Gran % (Auto) 2.000 H, Neut % (Auto) 74.3 H, Lymph % (Auto) 13.0 L, [place] % (Auto) 9.2, Eos % (Auto) 1.0, Baso % (Auto) 0.5, Absolute Neuts (auto) 7.2, Absolute Lymphs (auto) 1.25, Nucleated RBC % 0, Sodium 139, Potassium 4.3, Chloride 111 H, Carbon Dioxide 21.0, Anion Gap 7, BUN 15, Creatinine 0.98, Estim Creat Clear Calc 66.51, Est GFR (MDRD) Af Amer 97, Est GFR (MDRD) Non-Af 81, BUN/Creatinine Ratio 15.3, Glucose 90, Calcium 8.4 L D/C Instructions Discharge Diet: - (Low residue/low fiber/no seeds or nuts diet) Discharge Activity: May Drive and May Shower Please Follow Up With: Norma Yates MD When: Follow-up in 10-[address] Yates. Please call [phone] to schedule an appointment Meaningful Use Info Meaningful Use Diagnoses (Choose all that apply): None applicable Discharge Plan Admission Admit Date/Time: 06/27/23 14:04 Primary Reason for Your Visit: Acute diverticulitis with abscess Attending Provider: Norma Yates Primary Care Provider: Yuriy Morgan Instructions Additional Instructions / Restrictions: What are low-fiber foods? If your doctor tells you to follow a low-fiber diet, here are low-fiber foods you can eat and higher-fiber foods you should avoid. Remember to always choose foods that you would normally eat. Do not try any foods that caused you discomfort or allergic reactions in the past. If you are on a ?low-residue diet,? your food choices are even more restricted than those listed below. Talk with your cancer care team or dietitian if you have questions about certain foods or amounts. Meat, fish, poultry, and protein Eat: Tender cuts of meat Ground meat Tofu Fish and shellfish Smooth peanut butter Eggs Bake, broil, or poach meats, and use mild seasonings. Try preparing meats as stews, roasts, meatloaves, casseroles, sandwiches, and soups using ingredients on the approved lists. Scramble, poach, or boil eggs; or make omelets, souffl?s, custard, puddings, and casseroles, using ingredients noted below. You might want to ask your doctor, nurse, or dietitian about other foods may be OK for you to eat, and find out when you can go back to your normal diet. Avoid: All beans, nuts, peas, lentils, and legumes Processed meats, hot dogs, sausage, and cold cuts Tough meats with gristle Dairy: Milk and cheese Eat: Only in small to medium amounts and only if they don?t cause problems for you Milk, chocolate milk, buttermilk, and milk drinks Yogurt without seeds or granola Sour cream Cheese Cottage cheese Custard or pudding Ice cream or frozen desserts (without nuts) Cream sauces, soups, and casseroles You can use these items in desserts, snacks, or breads. Bread, cereals, and grains Eat: White breads, waffles, [place] toast, plain white rolls, or white bread toast Pretzels Plain pasta or noodles White rice Crackers, zwieback, mariana, and matzoh (no cracked wheat or whole grains) Cereals without whole grains, added fiber, seeds, raisins, or other dried fruit Use white flour for baking and making sauces. Grains, such as white rice, Cream of Wheat, or grits, should be well-cooked. Include the above grains in casseroles, dumplings, souffl?s, cheese strata, kugels, and pudding. Avoid any food that contains: Brown or wild rice Whole grains, cracked grains, or whole wheat products Kasha (buckwheat) Cornbread or cornmeal Michele crackers Bran Wheat germ Nuts Granola Coconut Dried fruit Seeds Vegetables and potatoes Eat: Tender, well-cooked fresh or canned vegetables without seeds, stems, or skins Cooked sweet or white potatoes without skins Strained vegetable juices without pulp or spices You can also eat these with cream sauces, or in soups, souffl?s, kugels, and casseroles. Avoid: All raw or steamed vegetables All types of beans Potatoes with skin Peas [place] Cabbage, broccoli, cauliflower, [place] sprouts, and greens Sauerkraut Onions Fruits and desserts Eat: Soft canned or cooked fruit without seeds or skins (small amounts) Small amounts of well-ripened banana Strained or clear juices Small amounts of soft cantaloupe or honeydew melon Cookies and other desserts without whole grains, dried fruit, berries, nuts, or coconut Sherbet and popsicles Serving suggestions include gelatins, milk shakes, frozen desserts, puddings, tapioca, cakes, and sauces. Avoid: All raw or dried fruits Berries Prune juice, prunes, and raisins Other foods Eat: Mayonnaise and mild salad dressings Margarine, butter, cream, and oils in small amounts Plain gravies Plain bouillon and broth Ketchup and mild mustard Spices, cooked herbs, and salt Sugar, honey, and syrup Clear jellies Hard candy and marshmallows Plain chocolate Avoid: Marmalade Pickles, olives, relish, and horseradish Popcorn Potato chips Liquids Keep in mind that low-fiber foods cause fewer bowel movements and smaller stools. You may need to drink extra fluids to help prevent constipation while you are on a low-fiber diet. Drink plenty of water unless your doctor tells you otherwise, and use juices and milk as noted above. Discharge Orders/Prescriptions Prescriptions: New amoxicillin-pot clavulanate 875-125 mg tablet 1 tab PO BID 14 Days Qty: 28 0RF Referrals / Follow Up: Yuriy Morgan MD [Primary Care Provider] - Norma Yates MD [Med Staff - Active Staff] - (Please call our office for a follow-up appointment in 10-14 days ) Disposition Disposition (needs filled in before D/C Order can be placed): Home, Self Care Charges/Coding Visit Charges Inpatient E&M: 51351 Disch Hosp >30min
--- NOTE | 2023-06-29 11:55 | CASEMGMT ---
JAC CM into pt room, pt sitting up dressed in chair with family at bedside. Pt denies any homegoing needs and wishes to be dc'd.
== END 2023-06-29 12:38 | disposition home or self-care (01) ==
LOC: ED 14:10 → MS3 14:25
PROVIDERS: Physician Assistant; Admitting Provider Surgery; Emergency Provider Emergency Medicine; PCP Family Medicine; Visit Provider Surgery
DX: K57.80 Diverticulitis of intestine, part unspecified, with perforation and abscess without bleeding (principal); Z87.891 Personal history of nicotine dependence
CPT/HCPCS: 36415; 74177; 80048; 80053; 81001; 83690; 85025; 96361; 96365; 96366; 96375; 97802; 99221; 99283; J7030; Q9967; A4216; G0378; J2405

== ENCOUNTER → 2023-07-14 | Outpatient (CLI) | payer MEDICARE, SELFPAY ==
--- NOTE | 2023-07-14 13:32 | CT_ITS ---
STUDY: CT ABDOMEN AND PELVIS WITH CONTRAST REASON FOR EXAM: Male, 68 years old. Diverticular abscess RADIATION DOSAGE (If Supplied By Facility): CTDIvol = ( 17.07 ) mGy, DLP = ( 1324.88 ) mGycm TECHNIQUE: Transaxial images were obtained from the dome of the diaphragm to the symphysis pubis with oral contrast. Oral and amp; IV Readi-CAT and amp; 100mL Isovue-370 was administered. Sagittal and coronal images were reconstructed. Individualized dose optimization techniques were used for this CT. COMPARISON: Comparison is made with prior study dated June 27, 2023. FINDINGS: The visualized lung bases are unremarkable. The visualized portions of the heart are within normal limits. There is decreased attenuation of the liver consistent with steatosis. Normal gallbladder and extrahepatic biliary system. Normal spleen. Normal pancreas. There is a small, circumscribed, smooth, low attenuation left adrenal mass, consistent with an adrenal adenoma. This measures 9.5 mm. Normal right adrenal gland. Normal right kidney. Stable 4.3 cm x 4.2 cm cyst in upper pole of the left kidney. Cysts are also seen in the lower pole and mid pole region of the left kidney. The largest cyst measures 4.6 cm. There is a small hiatal hernia. Normal small intestine. There are multiple colonic diverticula consistent with diverticulosis. The appendix is visualized and appears normal. There is scattered atherosclerotic calcification of the abdominal aorta, without a demonstrated aneurysm. Normal inferior vena cava. Normal retroperitoneum. Normal urinary bladder. There are prostatic calcifications. The previously seen 4.5 cm x 2.5 cm fluid collection deep to the anterior abdominal wall to the left of midline as a most completely resolved. A tiny air bubble is seen within. There are degenerative changes of the visualized lumbar spine. CT/Abdomen/Pelvis WITH Contrast IMPRESSION: Interval clearing of the previously seen focal fluid collection in the left lower quadrant just deep to the anterior abdominal wall. Tiny air collection is seen within it. Sigmoid diverticulosis. Left renal cysts. Electronically Signed: Kvng Bella MD at 13:50 EST ,
== END | disposition home or self-care (01) ==
LOC: CT 13:07
PROVIDERS: PCP Family Medicine; Referring Provider Surgery; Visit Provider Surgery
DX: K57.20 Diverticulitis of large intestine with perforation and abscess without bleeding (principal)
CPT/HCPCS: 74177; Q9967

== ENCOUNTER 2023-08-14 16:31 | Emergency (ER) | payer MEDICARE, SELFPAY ==
[2023-08-14 16:32] VITALS: BP 176/89; PULSE 115; RESP 22; TEMP 36.6; O2SAT 99; BMI 46.5
--- NOTE | 2023-08-14 16:48 | EKG12_ITS ---
Test Reason : ABD PAIN Blood Pressure : / mmHG Vent. Rate : 099 BPM Atrial Rate : 099 BPM P-R Int : 160 ms QRS Dur : 114 ms QT Int : 354 ms P-R-T Axes : 027 -51 068 degrees QTc Int : 454 ms Normal sinus rhythm Left anterior fascicular block Minimal voltage criteria for LVH, may be normal variant ( [place] product ) Abnormal ECG Confirmed by RAMESH GALO, MARLENI ([id number]), health editor TAMMI BAE ([id number]) on 08/15/2023 10:59:23 AM Referred By: Confirmed By:MARLENI CHANDLER MD
--- NOTE | 2023-08-14 16:48 | CT_ITS ---
EXAM: CT ABDOMEN AND PELVIS WITH INTRAVENOUS CONTRAST CLINICAL INDICATION: pain TECHNIQUE: Helically acquired images were obtained of the abdomen and pelvis with intravenous contrast. This CT exam was performed using one or more of the following dose reduction techniques: automated exposure control, adjustment of the mA and/or kV according to patient size, and/or use of iterative reconstruction technique. CONTRAST: IV 100mL Isovue-370 COMPARISON: 07/14/2023 FINDINGS: LOWER THORAX: Unremarkable. Lung bases are clear. No cardiomegaly. No significant pericardial effusion. ABDOMEN: LIVER: Unremarkable. Homogeneous. No focal mass. GALLBLADDER AND BILE DUCTS: Unremarkable. No calcified gallstones. No gallbladder distention or wall edema. No intra- or extrahepatic biliary ductal dilation. PANCREAS: There is inflammation surrounding the head, body and tail of the pancreas compatible with acute pancreatitis. There are no fluid collections identified. No focal cystic or solid mass. SPLEEN: Unremarkable. Normal size without focal cystic or solid mass. ADRENALS: There is a small mass in the left adrenal gland which is stable and may represent an adenoma. KIDNEYS AND URETERS: There are low-density masses in the left kidney compatible with simple cysts. There is a low-density fluid collection posterior and inferior to the left kidney that measures 4.2 x 5.1 x 3.7 cm and may represent a large exophytic cyst off the left kidney. This is unchanged from the reference exam. STOMACH AND BOWEL: Unremarkable. No stomach or bowel distention. No focal inflammatory change. PELVIS: APPENDIX: No evidence of acute appendicitis. BLADDER: Unremarkable. REPRODUCTIVE: Unremarkable as visualized. No mass. ABDOMEN and PELVIS: INTRAPERITONEAL SPACE: Unremarkable. No ascites or other fluid collection. No free air. BONES/JOINTS: Unremarkable. No suspicious lytic or blastic abnormality. SOFT TISSUES: Unremarkable. No discrete abdominal or pelvic wall hernia. VASCULATURE: Unremarkable. Abdominal aorta is non-dilated. LYMPH NODES: Unremarkable. No enlarged lymph nodes. CT/Abdomen/Pelvis W IV Cont ONLY IMPRESSION: 1. Inflammatory changes seen surrounding the pancreas compatible with acute pancreatitis. There is no focal fluid collection identified. 2. Multiple left renal cysts. There is also a stable left adrenal mass compatible with an adrenal adenoma. Electronically Signed: Jaime Vasquez MD at 19:19 EST ,
--- NOTE | 2023-08-14 16:52 | EDS_ITS ---
HPI <HIWOT Wu - Last Filed: 08/14/23 20:52> History of Present Illness Chief Complaint: Abd Pain Narrative Narrative: 68-year-old male developed epigastric and periumbilical abdominal pain around 12:30 PM today and then started vomiting. He states pain is a constant grabbing sensation. No radiation. No hematemesis. He states he has normal daily bowel movements and denies black or bloody stools. No urinary symptoms. He had diverticulitis with an abscess about 1 month ago. He was admitted for 2 days of IV antibiotics and discharged on Augmentin for 2 weeks. He states he had a repeat CT scan which showed improvement and was prescribed an additional 1 week of Augmentin. Was feeling better and his bowel movements were back to normal until today when this new abdominal pain started. The only medication he takes is Tylenol. He does not drink alcohol or smoke. No surgical history. PFSH <HIWOT Wu Last Filed: 08/14/23 20:52> [facility] Medical History Abdominal abscess Acute diverticulitis Allergy/AdvReac Type Severity Reaction Status Date / Time tramadol AdvReac Itching Verified 08/14/23 16:32 Surgical History Hx of knee surgery Social History Smoking Status: Former smoker ROS <HIWOT Wu Last Filed: 08/14/23 20:52> ROS ED ROS Narrative Constitutional: Negative for fever, chills, malaise. CVS: Negative for palpitations, chest pain, syncope. Respiratory: Negative for shortness of breath, cough. GI: Positive for abdominal pain, nausea, vomiting. Negative for diarrhea, constipation, melena, hematochezia. : Negative for dysuria, hematuria or frequency. EXAM <HIWOT Wu Last Filed: 08/14/23 20:52> Physical Exam Narrative Exam Narrative: CONST: Patient sitting in no acute distress. EYES: Normal inspection. NECK: Normal inspection. RESP: No respiratory distress, CTAB. CVS: Tachycardic with regular rhythm, no murmur, no gallop. ABD: Obese abdomen soft with midline epigastric and periumbilical tenderness,, no guarding or rebound, nondistended, no hepatosplenomegaly. SKIN: Color normal, no rash, warm, dry, intact. EXTREMITIES: Normal appearance, no pedal edema. NEURO: Oriented x4. PSYCH: Normal affect. Const Vital Signs: 08/14/23 16:32 Temperature 98 F Temperature Source Temporal Pulse Rate 115 H Respiratory Rate 22 H Blood Pressure 176/89 H Blood Pressure Mean 118 Pulse Ox 99 Oxygen Delivery Method Room Air <Dr. William Bentley MD - Last Filed: 08/14/23 23:08> Physical Exam Const Vital Signs: 08/14/23 16:32 Temperature 98 F Temperature Source Temporal Pulse Rate 115 H Respiratory Rate 22 H Blood Pressure 176/89 H Blood Pressure Mean 118 Pulse Ox 99 Oxygen Delivery Method Room Air <Dr. Jeremy Colon MD - Last Filed: 08/14/23 19:28> Physical Exam Const Vital Signs: 08/14/23 16:32 Temperature 98 F Temperature Source Temporal Pulse Rate 115 H Respiratory Rate 22 H Blood Pressure 176/89 H Blood Pressure Mean 118 Pulse Ox 99 Oxygen Delivery Method Room Air MDM <HIWOT Wu - Last Filed: 08/14/23 20:52> [facility] MDM Narrative Medical decision making narrative: Patient was treated for diverticulitis with perforation and abscess about a month ago and finished p.o. antibiotics. Today he developed epigastric/periu mbilical pain and nausea and vomiting. He appears uncomfortable but nontoxic. HR is 115 with otherwise normal vital signs. He is tender in the epigastrium and periumbilical region with mild peritoneal findings. Labs show white count of 18.7. There is hemoconcentration at 17.4. There is a new elevation of his lipase > 5000 with total bilirubin of 2.2, AST 333, ALT 240. He also has acute kidney injury with creatinine of 1.46. Lactate is 4.5. CT shows acute pancreatitis. Gallbladder is unremarkable on the scan so dedicated ultrasound was obtained. Gallbladder shows cholelithiasis and positive sonographic Bustos sign. There is no gallbladder wall thickening or pericholecystic fluid. Clinically patient has cholecystitis with tachycardia, white count, and continued pain. Case was discussed with the surgeon, Dr. Yates, who said he needs to be transferred because we do not have GI coverage available. Calls have been made to [facility] transfer line as the patient's first choice. I have personally performed a face to face assessment of the patient and have reviewed the SAGE Note. I performed a substantive portion of the visit including all aspects of the following. My christy findings include: History is markable for recent diagnosis of diverticulitis with microperforation and abscess formation. Patient was on long course of p.o. antibiotics after admission. He followed up with surgery. He presents because of abrupt onset of pain with nausea. He states it does hurt to walk. It does hurt to cough. He denies documented fever. He denies black or maroon-colored stool. He denies hematemesis or coffee-ground emesis. Exam is markable patient being in discomfort. He is hunched over the bed in obvious discomfort. HEENT exam is remarkable dry mucosa. Abdomen is remarkable for mild peritoneal findings. Bowel sounds are diminished. Medical Decision Making will obtain proper workup to assess CBC to assess white count differential, CBC to assess renal function and CT to determine if patient has perforation versus exacerbation of his diverticulitis. Will treat with Zosyn. Other additions or changes: Count is elevated 18.7 thousand with shift. There is no bandemia. H&H is elevated which may represent hemoconcentration due to dehydration. Will order IV fluids if it has not been. Initially received 4 mg morphine. Patient was dosed with 8 mg of morphine since he is still in significant discomfort. CAT scan was interpreted by radiologist. Interpretation was acute pancreatitis. Since transaminases are elevated ultrasound was obtained. Patient require admission. Common bile duct was normal in size. No evidence of cholelithiasis. Case was discussed with surgeon on-call, Dr. Hubbard. She cared for him when he had his diverticulitis. She is concerned that his pancreatitis will get worse and this is his primary issue and not his gallbladder. She is concerned he has gallstone pancreatitis. She is recommending transfer since we do not have dairy scientist on duty overnight and GI is not on-call to perform ERCP. Will ask patient where he would like to be transferred. She asked what his most recent heart rate is. I informed her that his heart rate is 96. Lab Data Attestation: I reviewed the patient's lab results. Labs: Laboratory Results - last 24 hr 12/08/14/23 08/14/23 16:45 17:40 17:58 WBC 18.7 H RBC 5.95 Hgb 17.4 H Hct 54.2 H MCV 91.1 MCH 29.2 MCHC 32.1 RDW Std Deviation 46.9 H RDW Coeff of Morteza 14.1 Plt Count TNP MPV 11.5 Immature Gran % (Auto) 0.600 Neut % (Auto) 87.8 H Lymph % (Auto) 6.0 L [place] % (Auto) 5.0 Eos % (Auto) 0.1 Baso % (Auto) 0.5 Absolute Neuts (auto) 16.4 H Absolute Lymphs (auto) 1.12 Nucleated RBC % 0 Platelet Estimate ADEQUATE RBC Morphology N CHROM Anisocytosis RARE Macrocytosis RARE Sodium 137 Potassium 4.0 Chloride 107 Carbon Dioxide 20.0 L Anion Gap 10 BUN 16 Creatinine 1.46 H Estim Creat Clear Calc 44.02 Est GFR (MDRD) Af Amer 61 Est GFR (MDRD) Non-Af 51 L BUN/Creatinine Ratio 11.0 Glucose 177 H Lactic Acid 4.5 H* Calcium 10.4 H Total Bilirubin 2.20 H AST 333 H ALT 240 H Alkaline Phosphatase 85 Troponin I High Sens 8 Total Protein 7.6 Albumin 3.9 Globulin 3.7 Albumin/Globulin Ratio 1.1 Lipase Cancelled > 5000 H Radiography Diagnostic Testing: Clinical Impression(s) from Imaging Studies Abdomen/Pelvis CT 08/14/23 16:48 IMPRESSION: 1. Inflammatory changes seen surrounding the pancreas compatible with acute pancreatitis. There is no focal fluid collection identified. 2. Multiple left renal cysts. There is also a stable left adrenal mass compatible with an adrenal adenoma. Electronically Signed: Jaime Vasquez MD at 19:19 EST Reading Location ID and State: [facility] / [place] Tel , Service support , Gallbladder Ultrasound 08/14/23 19:11 IMPRESSION: Cholelithiasis. Patient had a positive sonographic Bustos sign which can be seen in cholecystitis. There is no gallbladder wall thickening or pericholecystic fluid identified. Electronically Signed: Jaime Vasquez MD at 20:41 EST , EKG Initial EKG: Attestation: I personally reviewed and interpreted this EKG as follows: Interpretation: Sinus Rhythm Comments: Normal sinus rhythm at 99 bpm Left anterior fascicular block Minimal voltage from LVH No acute STEMI criteria <Dr. William Bentley MD - Last Filed: 08/14/23 23:08> [facility] MDM Narrative Medical decision making narrative: Patient was treated for diverticulitis with perforation and abscess about a month ago and finished p.o. antibiotics. Today he developed epigastric/periumbilical pain and nausea and vomiting. He appears uncomfortable but nontoxic. HR is 115 with otherwise normal vital signs. He is tender in the epigastrium and periumbilical region with mild peritoneal findings. Labs show white count of 18.7. There is hemoconcentration at 17.4. There is a new elevation of his lipase > 5000 with total bilirubin of 2.2, AST 333, ALT 240. He also has acute kidney injury with creatinine of 1.46. Lactate is 4.5. CT shows acute pancreatitis. Gallbladder is unremarkable on the scan so dedicated ultrasound was obtained. Gallbladder shows cholelithiasis and positive sonog raphic Bustos sign. There is no gallbladder wall thickening or pericholecystic fluid. Clinically patient has cholecystitis with tachycardia, white count, and continued pain. Case was discussed with the surgeon, Dr. Yates, who said he needs to be transferred because we do not have GI coverage available. Calls have been made to [facility] transfer line as the patient's first choice. I have personally performed a face to face assessment of the patient and have reviewed the SAGE Note. I performed a substantive portion of the visit including all aspects of the following. My christy findings include: History is markable for recent diagnosis of diverticulitis with microperforation and abscess formation. Patient was on long course of p.o. antibiotics after admission. He followed up with surgery. He presents because of abrupt onset of pain with nausea. He states it does hurt to walk. It does hurt to cough. He denies documented fever. He denies black or maroon-colored stool. He denies hematemesis or coffee-ground emesis. Exam is markable patient being in discomfort. He is hunched over the bed in obvious discomfort. HEENT exam is remarkable dry mucosa. Abdomen is remarkable for mild peritoneal findings. Bowel sounds are diminished. Medical Decision Making will obtain proper workup to assess CBC to assess white count differential, CBC to assess renal function and CT to determine if patient has perforation versus exacerbation of his diverticulitis. Will treat with Zosyn. Other additions or changes: Count is elevated 18.7 thousand with shift. There is no bandemia. H&H is elevated which may represent hemoconcentration due to dehydration. Will order IV fluids if it has not been. Initially received 4 mg morphine. Patient was dosed with 8 mg of morphine since he is still in significant discomfort. CAT scan was interpreted by radiologist. Interpretation was acute pancreatitis. Since transaminases are elevated ultrasound was obtained. Patient require admission. Common bile duct was normal in size. No evidence of cholelithiasis. Case was discussed with surgeon on-call, Dr. Hubbard. She cared for him when he had his diverticulitis. She is concerned that his pancreatitis will get worse and this is his primary issue and not his gallbladder. She is concerned he has gallstone pancreatitis. She is recommending transfer since we do not have dairy scientist on duty overnight and GI is not on-call to perform ERCP. Will ask patient where he would like to be transferred. She asked what his most recent heart rate is. I informed her that his heart rate is 96. Spoke with the nurse for the emergency [facility] transfer line. She contacted the general surgeon on-call. After informing him of patient's history, presentation and concern for severe pancreatitis/gallstone pancreatitis he recommended [facility] or [facility] since he will require hepatobiliary service. Spoke with the nurse for the [facility] transfer service at 2100. She was informed of patient's history, physical findings, laboratory studies, results. Will fax the written report of the ultrasound and CAT scan to the transfer nurse. Radiology was contacted to send the CAT scan images and ultrasound to [facility] as well. I was informed patient is requesting more pain medicine. His last dose of pain medicine was Dilaudid. He was only given 0.5 mg. Based on weight requires a higher dose. 1 mg was ordered. Awaiting callback from transfer center for [facility]. Spoke with Stephanie of the transfer nurse. Patient was accepted by surgical service Dr. Jewell. Will inform the ER attending of patient's condition. Case was discussed with Dr. Mecca Hernandez the ER physician who was made aware of patient. Spoke with nurse for critical care transport. Since there is a delay in transport of 4 hours Khanh Marques will make arrangements for transfer. History & Record Review Discussion w/independent historian: Patient and Significant other Additional record(s) reviewed:: Prior inpatient record Lab Data Labs: Laboratory Results - last 24 hr 08/14/23 08/14/23 08/14/23 16:45 17:40 17:58 WBC 18.7 H RBC 5.95 Hgb 17.4 H Hct 54.2 H MCV 91.1 MCH 29.2 MCHC 32.1 RDW Std Deviation 46.9 H RDW Coeff of Morteza 14.1 Plt Count TNP MPV 11.5 Immature Gran % (Auto) 0.600 Neut % (Auto) 87.8 H Lymph % (Auto) 6.0 L [place] % (Auto) 5.0 Eos % (Auto) 0.1 Baso % (Auto) 0.5 Absolute Neuts (auto) 16.4 H Absolute Lymphs (auto) 1.12 Nucleated RBC % 0 Platelet Estimate ADEQUATE RBC Morphology N CHROM Anisocytosis RARE Macrocytosis RARE Sodium 137 Potassium 4.0 Chloride 107 Carbon Dioxide 20.0 L Anion Gap 10 BUN 16 Creatinine 1.46 H Estim Creat Clear Calc 44.02 Est GFR (MDRD) Af Amer 61 Est GFR (MDRD) Non-Af 51 L BUN/Creatinine Ratio 11.0 Glucose 177 H Lactic Acid 4.5 H* Calcium 10.4 H Total Bilirubin 2.20 H AST 333 H ALT 240 H Alkaline Phosphatase 85 Troponin I High Sens 8 Total Protein 7.6 Albumin 3.9 Globulin 3.7 Albumin/Globulin Ratio 1.1 Lipase Cancelled > 5000 H Radiography Diagnostic Testing: Clinical Impression(s) from Imaging Studies Abdomen/Pelvis CT 08/14/23 16:48 IMPRESSION: 1. Inflammatory changes seen surrounding the pancreas compatible with acute pancreatitis. There is no focal fluid collection identified. 2. Multiple left renal cysts. There is also a stable left adrenal mass compatible with an adrenal adenoma. Electronically Signed: Jaime Vasquez MD at 19:19 EST , Gallbladder Ultrasound 08/14/23 19:11 IMPRESSION: Cholelithiasis. Patient had a positive sonographic Bustos sign which can be seen in cholecystitis. There is no gallbladder wall thickening or pericholecystic fluid identified. Electronically Signed: Jaime Vasquez MD at 20:41 EST , Ultrasound the gallbladder reveals a 2.5 x 1.6 cm stone at the neck of the gallbladder. Patient has sonographic Bustos sign. Gallbladder length is 9.97 cm. Common bile duct is normal size. Management Discussion w/another healthcare provider: [employer] (Case discussed with michelle zamora who recommended transfer. She states that patient is medical management.) <Dr. Jeremy Colon MD - Last Filed: 08/14/23 19:28> [facility] MDM Narrative Medical decision making narrative: Patient was treated for diverticulitis with perforation and abscess about a month ago and finished p.o. antibiotics. Today he developed epigastric/periumbilical pain and nausea and vomiting. He appears uncomfortable but nontoxic. HR is 115 with otherwise normal vital signs. He is tender in the epigastrium and periumbilical region with mild peritoneal findings. Labs show white count of 18.7. There is hemoconcentration at 17.4. There is a new elevation of his lipase > 5000 with total bilirubin of 2.2, AST 333, ALT 240. He also has acute kidney injury with creatinine of 1.46. Lactate is 4.5. I have personally performed a face to face assessment of the patient and have reviewed the SAGE Note. I performed a substantive portion of the visit including all aspects of the following. My christy findings include: History is markable for recent diagnosis of diverticulitis with microperforation and abscess formation. Patient was on long course of p.o. antibiotics after admission. He followed up with surgery. He presents because of abrupt onset of pain with nausea. He states it does hurt to walk. It does hurt to cough. He denies documented fever. He denies black or maroon-colored stool. He denies hematemesis or coffee-ground emesis. Exam is markable patient being in discomfort. He is hunched over the bed in obvious discomfort. HEENT exam is remarkable dry mucosa. Abdomen is remarkable for mild peritoneal findings. Bowel sounds are diminished. Medical Decision Making will obtain proper workup to assess CBC to assess white count differential, CBC to assess renal function and CT to determine if patient has perforation versus exacerbation of his diverticulitis. Will treat with Zosyn. Other additions or changes: Count is elevated 18.7 thousand with shift. There is no bandemia. H&H is elevated which may represent hemoconcentration due to dehydration. Will order IV fluids if it has not been. Initially received 4 mg morphine. Patient was dosed with 8 mg of morphine since he is still in significant discomfort. CAT scan was interpreted by radiologist. Interpretation was acute pancreatitis. Since transaminases are elevated ultrasound was obtained. Patient require admission. Common bile duct was normal in size. No evidence of cholelithiasis. Lab Data Labs: Laboratory Results - last 24 hr 08/14/23 08/14/23 08/14/23 16:45 17:40 17:58 WBC 18.7 H RBC 5.95 Hgb 17.4 H Hct 54.2 H MCV 91.1 MCH 29.2 MCHC 32.1 RDW Std Deviation 46.9 H RDW Coeff of Morteza 14.1 Plt Count TNP MPV 11.5 Immature Gran % (Auto) 0.600 Neut % (Auto) 87.8 H Lymph % (Auto) 6.0 L [place] % (Auto) 5.0 Eos % (Auto) 0.1 Baso % (Auto) 0.5 Absolute Neuts (auto) 16.4 H Absolute Lymphs (auto) 1.12 Nucleated RBC % 0 Platelet Estimate ADEQUATE RBC Morphology N CHROM Anisocytosis RARE Macrocytosis RARE Sodium 137 Potassium 4.0 Chloride 107 Carbon Dioxide 20.0 L Anion Gap 10 BUN 16 Creatinine 1.46 H Estim Creat Clear Calc 44.02 Est GFR (MDRD) Af Amer 61 Est GFR (MDRD) Non-Af 51 L BUN/Creatinine Ratio 11.0 Glucose 177 H Lactic Acid 4.5 H* Calcium 10.4 H Total Bilirubin 2.20 H AST 333 H ALT 240 H Alkaline Phosphatase 85 Troponin I High Sens 8 Total Protein 7.6 Albumin 3.9 Globulin 3.7 Albumin/Globulin Ratio 1.1 Lipase Cancelled > 5000 H Radiography Diagnostic Testing: Clinical Impression(s) from Imaging Studies Abdomen/Pelvis CT 08/14/23 16:48 IMPRESSION: 1. Inflammatory changes seen surrounding the pancreas compatible with acute pancreatitis. There is no focal fluid collection identified. 2. Multiple left renal cysts. There is also a stable left adrenal mass compatible with an adrenal adenoma. Electronically Signed: Jaime Vasquez MD at 19:19 EST , Gallbladder Ultrasound 08/14/23 19:11 IMPRESSION: Cholelithiasis. Patient had a positive sonographic Bustos sign which can be seen in cholecystitis. There is no gallbladder wall thickening or pericholecystic fluid identified. Electronically Signed: Jaime Vasquez MD at 20:41 EST , <Dr. William Bentley MD - Last Filed: 08/14/23 23:08> Critical Care Time Critical Care Time: Yes Critical care time (excluding procedures): 30-74 minutes (31), Including time spent: (History, physical, documentation, review of prior records, interpretation laboratory results including CT and ultrasound prior to radiologist or potation. Initiation of contact with general surgery regarding h is ultrasound findings.), Discussing w/Patient &/or Family/Police Records Clerk and Discussing w/Consultants Discharge Plan Dx/Rx/DC Orders Clinical Impression: LAURIE (acute kidney injury), Elevated transaminase level, Sinus tachycardia seen on color television console monitor, Leukocytosis, Acidosis, lactic, Acute gallstone pancreatitis, Acute cholecystitis due to biliary calculus, Sepsis without acute organ dysfunction Disposition Disposition: [facility]
[2023-08-14] MEDS: Ondansetron 4 MG/2 ML Vial IV (16:57)
[2023-08-14] MEDS: Morphine 4 MG/ML Syringe IV (16:57)
[2023-08-14] MEDS: 0.9% Normal Saline (1000mL) 1,000 ML 999 ML IV (16:58)
[2023-08-14 17:04] LABS: Absolute Lymphocyte Count 1.12 X10^3/uL (0.83-4.51); Absolute Neutrophil Count 16.4 X10^3/uL (2.0-7.7); Basophil% 0.5 % (0-1); Eosinophil# 0.01 X10^3/uL; Eosinophils% 0.1 % (0-5); Hematocrit 54.2 % (40-54); Hemoglobin 17.4 g/dL (13.0-16.5); Lymphocyte # 1.12 X10^3/ul (0.83-4.51); Mean Corp Hgb Conc 32.1 g/dL (32-36); Mean Corpuscular Hgb 29.2 pg (27.0-32.0); Mean Corpuscular Volume 91.1 fL (80-94); Mean Platelet Vol. 11.5 fl (6.2-12.0); Monocyte# 0.93 X10^3/uL; NRBC Flagged by Analyzer 0 % (0-5); Neutrophil # 16.41 X10^3/uL (2.7-7.7); Neutrophil % 87.8 % (47-70); POSITIVE COUNT YES; RBC Distribution Width CV 14.1 % (11.6-14.6); RBC Distribution Width SD 46.9 fl (35.1-43.9); Red Blood Count 5.95 M/mm3 (4.6-6.2); White Blood Count 18.7 K/mm3 (4.4-11.0)
[2023-08-14 17:18] LABS: Differential Indicated SCAN CRITERIA MET
[2023-08-14 17:20] LABS: Anisocytosis RARE; Macrocytosis RARE; Platelet Estimate ADEQUATE (ADEQ); Red Cell Morphology N CHROM NORMAL (NORM C&C)
[2023-08-14] MEDS: morphine 8 MG/ML Syringe IV (17:32)
[2023-08-14] MEDS: Piperacil/Tazobactam 3.375 GM in 0.9% Normal Saline (50mL MB+) 50 ML IV (18:06)
[2023-08-14 18:33] LABS: Lactic Acid 4.5 mmol/L (0.4-1.9)
[2023-08-14 18:58] LABS: ALB/GLOB Ratio 1.1 RATIO (0.9-2.4); AST(SGOT) 333 U/L (15-37); Alanine Aminotransfer ALT/SGPT 240 U/L (16-61); Albumin, Serum 3.9 g/dL (3.2-5.0); Alkaline Phosphatase 85 U/L (45-117); Anion Gap 10 (5-15); BUN 16 mg/dL (7-18); Calcium,Total 10.4 mg/dL (8.5-10.1); Chloride 107 mmol/L (98-107); Creatinine, Serum 1.46 mg/dL (0.70-1.30); EST Glomerular Filtration Rate 51 mL/min (>60); Est Glom Filt Rate - Afr Amer 61 mL/min (>60); Estimated Creatinine Clearance 44.02 ml/min; Globulin 3.7 g/dL (2.2-4.2); Glucose 177 mg/dL (74-106); Protein, Total 7.6 g/dL (6.4-8.2); Sodium Level 137 mmol/L (136-145); Troponin-I HS 8 pg/mL (3.0-78.0)
[2023-08-14 19:00] LABS: Lipase > 5000 U/L (13-75)
--- NOTE | 2023-08-14 19:11 | US_ITS ---
EXAM: US ABDOMEN LIMITED, RIGHT UPPER QUADRANT CLINICAL INDICATION: ruq pain TECHNIQUE: Real-time ultrasound of the right upper quadrant with image documentation. COMPARISON: No relevant prior studies available. FINDINGS: LIVER: The liver measures 18.3 cm in length. There is normal echotexture. No intrahepatic biliary ductal dilation. GALLBLADDER: There is echogenic focus in the gallbladder compatible. Gallbladder wall measures 2 mm. Patient with positive sonographic Bustos''s sign. No shadowing gallstone. No pericholecystic fluid. COMMON BILE DUCT: Common bile duct measures 5 mm. The proximal common bile duct is within normal limits for the patient''s age. PANCREAS: Pancreas is obscured by overlying bowel gas. RIGHT KIDNEY: The right kidney measures 11.6 x 5.2 x 4.3 cm. The right renal cortex measures 1.7 cm. There is no hydronephrosis. No shadowing calculus. No focal lesion or perinephric collection is demonstrated. US/Gallbladder IMPRESSION: Cholelithiasis. Patient had a positive sonographic Bustos sign which can be seen in cholecystitis. There is no gallbladder wall thickening or pericholecystic fluid identified. Electronically Signed: Jaime Vasquez MD at 20:41 EST ,
[2023-08-14] MEDS: HYDROmorphone 0.5 MG/0.5 ML SYRINGE IV (20:07)
[2023-08-14] MEDS: 0.9% Normal Saline (1000mL) 1,000 ML 1000 ML IV (21:45)
[2023-08-14 21:46] LABS: Reflex Lactate? Y
[2023-08-14] MEDS: HYDROmorphone 1 MG/ML Syringe IV (22:51)
[2023-08-14 23:47] VITALS: BP 194/98; PULSE 98; RESP 16; TEMP 35.8; O2SAT 93
[2023-08-15] MEDS: Ondansetron 4 MG/2 ML Vial IV (00:53)
[2023-08-15] MEDS: HYDROmorphone 1 MG/ML Syringe IV (01:26)
[2023-08-15 01:27] VITALS: PULSE 97; RESP 18; O2SAT 96
[2023-08-15] MEDS: 0.9% Normal Saline (1000mL) 1,000 ML 200 ML IV (01:30)
[2023-08-15 02:06] VITALS: BP 194/89; PULSE 97; RESP 18; TEMP 35.8; O2SAT 91
[2023-08-15 02:14] VITALS: O2SAT 80
[2023-08-15 02:15] VITALS: O2SAT 93
== END 2023-08-15 02:18 | disposition short-term general hospital (02) ==
PROVIDERS: Physician Assistant; Emergency Provider Emergency Medicine; PCP Family Medicine; Visit Provider Emergency Medicine
DX: A41.9 Sepsis, unspecified organism (principal); N17.9 Acute kidney failure, unspecified; K85.10 Biliary acute pancreatitis without necrosis or infection; R74.01 Elevation of levels of liver transaminase levels; K80.10 Calculus of gallbladder with chronic cholecystitis without obstruction; K57.92 Diverticulitis of intestine, part unspecified, without perforation or abscess without bleeding; R00.0 Tachycardia, unspecified; D72.829 Elevated white blood cell count, unspecified; E87.20 Acidosis, unspecified; Z87.891 Personal history of nicotine dependence
CPT/HCPCS: 74177; 76705; 80053; 83605; 83690; 84484; 85025; 87040; 93005; 96361; 96365; 96375; 96376; 99283; J7030; Q9967; A4216; J2405